=== PATIENT | female | born 1960 | race Caucasian/White ===

== ENCOUNTER 2025-08-11 11:06 | Outpatient (REF) | payer MEDICARE, SELFPAY ==
[2025-08-11 18:28] LABS: MANUAL DIFF FLAG NO
[2025-08-11 18:35] LABS: Hematocrit 41.1 % (37.0-47.0); Hemoglobin 13.1 g/dl (12.0-16.0); Imm Gran Abs Auto 0.03 X10*3/uL (0.00-0.03); Imm Gran Pct Auto 0.3 % (0.0-0.4); Lymphocytes Absolute Auto 2.2 X10*3/uL (1.2-4.9); Mean Corpuscular HGB Conc 31.9 g/dl (31.0-35.0); Mean Corpuscular Hemoglobin 29.6 pg (27.0-33.0); Mean Corpuscular Volume 93.0 fL (80.0-98.0); NRBC Abs Auto 0.000 X10*3/uL (0.0-0.012); NRBC Pct Auto 0.0 /100WBC (0.0-0.2); Platelet Count 522 X10*3/uL (160-400); Red Blood Count 4.42 X10*6/uL (4.20-5.50); White Blood Count 8.7 X10*3/uL (4.8-10.8)
[2025-08-11 18:51] LABS: Alanine Aminotransferase 13 U/L (0-31); Albumin Level 4.5 g/dL (3.5-5.0); Alkaline Phosphatase 65 U/L (39-117); Anion Gap 15 (12-20); Aspartate Amino Transferase 25 U/L (5-31); Blood Urea Nitrogen 11 mg/dL (9-16); Calcium 10.4 mg/dL (8.4-10.2); Carbon Dioxide 24 mmol/L (22-29); Chloride 106 mmol/L (96-108); Cholesterol 299 mg/dL (<200); Estimated Glomerular Filt Rate > 60; HDL Cholesterol 60 mg/dL (>40); Magnesium 2.5 mg/dL (1.6-2.6); Potassium 3.8 mmol/L (3.3-5.1); Sodium 141 mmol/L (135-145); Total Protein 7.8 g/dL (6.5-8.0); Triglycerides 275 mg/dL (<150)
[2025-08-11 19:20] LABS: Folate 14.7 ng/mL (> or = 4.0); Vitamin B12 261 pg/mL (200-900)
[2025-08-12 05:39] LABS: HBS Num1 113.97 mIU/mL (0-7.99); HBsAGNum1 0.44 S/CO (0.00-0.99); HIV Num 1 0.04 S/CO (0.00-0.99); Hepatitis B Surface Antigen Negative (Negative); ~HepC Num1 0.07 S/CO (0.00-0.79); ~Hepatitis B Surface Antibody REACTIVE (Nonreactive); ~Hepatitis C Antibody Nonreactive (Nonreactive)
[2025-08-17 08:54] LABS: VITAMIN D (1,25 OH) D3 74 pg/mL; Vit D (1,25-Dihydroxy) Total 74 pg/mL (18-72); Vitamin D (1,25 OH) D2 <8 pg/mL
== END 2025-08-11 11:07 | disposition home or self-care (01) ==
LOC: HO.HKASLDS 11:06
PROVIDERS: PCP Internal Medicine; Visit Provider Student in an Organized Health Care Education/Training Program
DX: Z76.89 Persons encountering health services in other specified circumstances (principal); Z11.4 Encounter for screening for human immunodeficiency virus [HIV]; Z13.1 Encounter for screening for diabetes mellitus; K59.00 Constipation, unspecified; F43.22 Adjustment disorder with anxiety; E78.5 Hyperlipidemia, unspecified; Z87.891 Personal history of nicotine dependence
CPT/HCPCS: 36415; 80053; 80061; 82607; 82652; 82746; 83036; 83735; 85025; 86706; 86803; 87340; 87389

== ENCOUNTER 2025-08-23 11:34 | Outpatient (REF) | payer MEDICARE, SELFPAY ==
[2025-08-23 17:53] LABS: Appearance Urine Clear; Glucose Urine UA Negative (Negative); PH 6.0 (5.0-9.0); Specific Gravity - Urine 1.010 (1.005-1.025); UMIC TRIGGER UACC YES
== END 2025-08-23 11:35 | disposition home or self-care (01) ==
LOC: HO.HKASLDS 11:34
PROVIDERS: PCP Student in an Organized Health Care Education/Training Program; Visit Provider Student in an Organized Health Care Education/Training Program
DX: Z76.89 Persons encountering health services in other specified circumstances (principal); Z71.2 Person consulting for explanation of examination or test findings; Z13.9 Encounter for screening, unspecified; E83.52 Hypercalcemia; E67.3 Hypervitaminosis D; E78.5 Hyperlipidemia, unspecified; R79.89 Other specified abnormal findings of blood chemistry; D75.839 Thrombocytosis, unspecified
CPT/HCPCS: 81001

== ENCOUNTER 2025-11-15 11:11 | Outpatient (AMB) | payer MEDICARE, SELFPAY ==
--- NOTE | 2025-11-15 11:11 | MHC.AMNUTRGE ---
Intake Visit Reasons: Initial Nutrition Assessment Allergies prednisone Allergy (Mild, Verified 08/23/25 11:35) facial numbness Nutrition Presentation Details: Met with patient today. Receives her lunches from [facility]. Does not really cook at home. Has had severe bouts of mental health decline that resulted in lack of eating. RD helped patient set up her Zoom account so she can do some of her mental health and nutrition appointments virtually in the future. Pt was also made aware of food access programs in the area including HIP, food pantries and MOW. High fiber, low saturated fat and minimal added sugar lifestyle reviewed. Right now, pt is going to focus on increasing the presence o vegetables in her diet with the added food resources. Thereafter, she will look at her added sugar consumption. Pt was also educated on the need to avoid grapefruit while on her cholesterol meds. She works with [employer] for her mental health needs and has asked to restart some of her psych meds that she had self-discontinuted in the past. Reason for consult: other Unstable SDH: Reports use of SNAP (HIP Education provided) GI symptoms: reports decreased appetite (anxiety) and constipation (takes psyllium fiber, occasional laxative-rare) Food allergies/aversions: No Smoking assessment: Reviewed (stopped 15 years ago) Alcohol assessment: Reviewed (stopped 15 years ago, for sleep at the time) Physical activity assessment: Reviewed ([facility] classes 2hr/week, does some home exercise-helps with anxiety) Diet Assmnt Details: lost 30# about 3 months ago due to lack of appetite related to anxiety. Regained about 8# in the last month. Current diet assessment: Reviewed Dietary counseling: Mediterranean Who buys your food: self Who prepares/cooks your food: self Meal frequency: regular: breakfast (wake 9 am: nothing unless at [facility]; at home, yogurt, granola bar and/or a treat), dinner (5-6 pm: tuna and crackers) and snacks (flavored seltzer, water; bread, PB; after dinner, potato chips, chex mix, cookies, candy; goes to bed around 1 am) and irregular: lunch (usually skips at home; uses [facility] lunch on week days which is generally balanced) Lifestyle Emotional Eating: Reports anxiety (loses appetite) Eating out: rarely or never Reads food labels: Yes Exercise: Yes Television viewing hours: more than 2 hours/day Computer hours: more than 2 hours/day (plays a lot of [employer] games) Food frequency: Dairy: several times weekly, Fruit: several times weekly, Vegetables: several times weekly, Grains/pasta/breads/cereal (carbs): daily, Meats/poultry/fish (protein): daily, Desserts/sweets: daily, Fats/oils: daily, Water: daily, Soda: several times weekly ( guillaume), Juice: never and Alcohol: never BS Monitoring Most Recent Diabetes Results: Cholesterol, (<200) 299 mg/dL H 08/11/25 HDL Cholesterol, (>40) 60 mg/dL 08/11/25 Triglycerides, (<150) 275 mg/dL H 08/11/25 Creatinine, (0.5-1.4) 0.81 mg/dL 08/11/25 Calcium, (8.4-10.2) 10.4 mg/dL H 08/11/25 AST, (5-31) 25 U/L 08/11/25 ALT, (0-31) 13 U/L 08/11/25 Total Protein, (6.5-8.0) 7.8 g/dL 08/11/25 Albumin, (3.5-5.0) 4.5 g/dL 08/11/25 Assessment Nutrition recommendation: RD nutrition education Recommendation: high fiber (gradual increase), low saturated fat, added sugar Comment: increase fiber via vegetables using food access resources Focused findings Nutrition-focused findings: constipation HDE-Yfbqduy-Zy.Jeor Equation Calculated Activity Level: Mild Activity Diagnosis Nutrition problem #1: altered nutrition labs, food nutri know defi and unintended weight loss As related to (etiology) #1: lack of nutrit education, unsure how to apply info and diagnosis As evidenced by (sign/symptom) #1: abnormal serum lipids, food recall, constipation, knowledge deficit of diet, weight loss and no prior educ - nutri rec Monitoring/Goals Nutrition problem monitoring: total energy intake, level of knowledge/skill, total CHO intake and oral fluids Nutrition goal/outcome: list 3 high fiber foods Outcome progress: verbalized understanding Learning/Education Readiness to learn: excellent Stages of change: action Educational materials provided: Yes (cholesterol Edu, food access resources) Date of nutrition screenin11/15/25 Date of nutritional follow-up: 12/22/25 Follow up Follow-up frequency: monthly Time Outcome assessment time: 60 minutes PFSH Family History Father No problems noted. Mother Hepatitis FH: mental illness Social History Housing: Condominium Alcohol intake: current Alcohol intake frequency: does not drink Patient Tobacco Use Status: Former Tobacco user service: No Current occupational status: retired Cognitive needs: No Hearing needs: No Vision needs: Yes (rx glasses/ reading) Review of Systems GI Reports constipation (takes psyllium fiber, occasional laxative-rare) Assessment & Plan Assessment & Plan (1) Hyperlipidemia: Code(s): E78.5 - Hyperlipidemia, unspecified Plan 1. use food access resources 2. increase vegetable consumption 3. maintain good hydration 4. increase physical activity at home Patient Instructions: 1. use food access resources 2. increase vegetable consumption 3. maintain good hydration 4. increase physical activity at home Coding Level of Care Code Nutr Indiv Intake (97662) Diagnoses Hyperlipidemia E78.5
== END 2025-11-15 12:09 | disposition home or self-care (01) ==
LOC: HO.HMCCN 11:11
PROVIDERS: PCP Student in an Organized Health Care Education/Training Program; Visit Provider Dietitian, Registered
DX: E78.5 Hyperlipidemia, unspecified (principal)

== ENCOUNTER → 2025-11-15 11:11 | Outpatient (BNVA) | payer MEDICARE, SELFPAY | PROVIDERS: PCP Student in an Organized Health Care Education/Training Program; Visit Provider Dietitian, Registered | DX: E78.5 Hyperlipidemia, unspecified (principal); Z13.21 Encounter for screening for nutritional disorder | CPT/HCPCS: 97802 ==

== ENCOUNTER 2025-11-24 10:38 | Outpatient (REF) | payer MEDICARE, OTHER, SELFPAY ==
--- NOTE | ~2025-11-24 | MM_ITS ---
EXAMINATION: DXA BONE DENSITY AXIAL HISTORY: Z13.820 - Encounter for screening for osteoporosis TECHNIQUE: Unbound Dual energy absorptiometry (DEXA) of the lumbar spine, total left hip, and femoral neck was performed. COMPARISON: There are no prior studies for comparison. FINDINGS: The bone mineral density of the lumbar spine is 1.165 g/cm2, corresponding to a T-score of -0.1, and a Z-score of 1.5. This is indicative of normal bone mineral density. The bone mineral density of the left total hip is 0.910 g/cm2, corresponding to a T-score of -0.8, and a Z-score of 0.5. This is indicative of normal bone mineral density. The bone mineral density of the left femoral neck is 0.830 g/cm2, corresponding to a T-score of -1.5, and a Z-score of 0.1. This is indicative of osteopenia. FRACTURE RISK: The FRAX index suggests a risk of major osteoporotic fracture of 9.3%, and of hip fracture 1.1%. MM/XR DEXA axial skeleton IMPRESSION: Based on bone mineral density, and according to World Health Organization (WHO) criteria, the diagnosis is consistent with osteopenia. Statistically, 68% of repeat scans fall within 1 SD (+/- 0.010 g/cm2 for AP spine L1-L4) and 1 SD (+/- 0.012 g/cm2 for femur total) FRAX is a trademark of the [employer] [place] [facility] [employer] [facility], a World Health Organization (WHO) Collaborating Center. Electronically signed by: Drew Galicia MD 11/24/2025 11:23 AM [facility] [place]
== END 2025-11-24 10:39 | disposition home or self-care (01) ==
LOC: HO.MAMMO 10:38
PROVIDERS: PCP Student in an Organized Health Care Education/Training Program; Visit Provider Student in an Organized Health Care Education/Training Program
DX: Z12.31 Encounter for screening mammogram for malignant neoplasm of breast (principal); M85.89 Other specified disorders of bone density and structure, multiple sites; Z13.820 Encounter for screening for osteoporosis; Z76.89 Persons encountering health services in other specified circumstances; Z13.89 Encounter for screening for other disorder
CPT/HCPCS: 77063; 77067; 77080

== ENCOUNTER → 2025-11-24 11:00 | Outpatient (BNV) | payer MEDICARE, OTHER, SELFPAY | PROVIDERS: PCP Student in an Organized Health Care Education/Training Program; Visit Provider Radiology Diagnostic Radiology | DX: E28.39 Other primary ovarian failure (principal) | CPT/HCPCS: 77080 ==